=== PATIENT | male | born 1975 | race Caucasian/White ===

== ENCOUNTER 2018-02-07 23:11 | Emergency (ER) | payer SELFPAY ==
[~2018-02-07] VITALS: Ht 165.1 cm; Wt 77.1 kg
[~2018-02-07 23:11] MED LIST: CPR500T PO; NAPR-243 PO; pain med
[2018-02-07] MEDS ORDERED: LACTATED RINGERS 1,000 ML IV ONE (23:44)
[2018-02-07] MEDS ORDERED: KETOROLAC 30 MG/ML VIAL IVP STA (23:44)
[2018-02-07 23:50] LABS: BILIRUBIN,URINE NEGATIVE (NEGATIVE); CLARITY,URINE SLIGHTLY CLOUDY; COLOR,URINE YELLOW; GLUCOSE, URINE (UA) NEGATIVE (NEGATIVE); KETONES,URINE NEGATIVE (NEGATIVE); LEUKOCYTE ESTERASE ,URINE 1+ (NEGATIVE); NITRITE,URINE NEGATIVE (NEGATIVE); PH,URINE 6.5 (5-9); PROTEIN,URINE 2+ (NEGATIVE); UROBILINOGEN,URINE NORMAL (NORMAL)
[2018-02-08 00:02] LABS: BACTERIA,URINE TRACE /HPF; RBC,URINE >100 /HPF; SQUAMOUS EPITHELIAL CELL,UR RARE /HPF; WBC,URINE 0-2 /HPF
[2018-02-08 00:15] LABS: BASOPHILS % (AUTO) 0 % (0-10); EOSINOPHILS # (AUTO) 0.1 10^3/uL (0.0-0.3); EOSINOPHILS % (AUTO) 1 % (0-10); HEMATOCRIT 41 % (40-54); HEMOGLOBIN 13.9 G/DL (13.3-17.7); LYMPHOCYTES # (AUTO) 3.2 X 10^3 (1.0-4.0); LYMPHOCYTES % (AUTO) 25 % (12-44); MEAN CORPUSCULAR HEMOGLOBIN 30 PG (25-34); MEAN CORPUSCULAR HGB CONC 34 G/DL (32-36); MEAN CORPUSCULAR VOLUME 88 FL (80-99); MEAN PLATELET VOLUME 9.3 FL (7.4-10.4); MONOCYTES # (AUTO) 0.6 X 10^3 (0.0-1.0); MONOCYTES % (AUTO) 5 % (0-12); NEUTROPHILS # (AUTO) 8.6 X 10^3 (1.8-7.8); NEUTROPHILS % (AUTO) 68 % (42-75); PLATELET COUNT 418 10^3/uL (130-400); RED BLOOD COUNT 4.63 10^6/uL (4.35-5.85); RED CELL DISTRIBUTION WIDTH 12.7 % (10.0-14.5); WHITE BLOOD COUNT 12.5 10^3/uL (4.3-11.0)
[2018-02-08 00:37] LABS: ALBUMIN 4.3 GM/DL (3.2-4.5); BILIRUBIN,TOTAL 0.2 MG/DL (0.1-1.0); CALCIUM 8.7 MG/DL (8.5-10.1); CREATININE SERUM 1.83 MG/DL (0.60-1.30); POTASSIUM 3.3 MMOL/L (3.6-5.0); TOTAL PROTEIN 7.4 GM/DL (6.4-8.2)
[2018-02-08] MEDS ORDERED: RX-ONDANSETRON 4 MG ODT (ZOFRAN) PPK #4 PO STA (00:40)
[2018-02-08] MEDS ORDERED: RX-NITROFURANTOIN 100 MG (MACROBID) CAP PPK#2 PO STA (00:40)
[2018-02-08] MEDS ORDERED: RX-HYDROCODONE/APAP 5/325 MG #4 TAB PK PO PRN (00:45)
[2018-02-08] MEDS ORDERED: ONDA4TAB8 PO (00:45)
[2018-02-08] MEDS ORDERED: HYDR-87 PO (00:45)
[2018-02-08] MEDS ORDERED: TAMS0.4C98 PO (00:45)
[2018-02-08] MEDS ORDERED: ALFUZOSIN HCL 10 MG TAB (UROXATRAL) PO SCH (00:45)
[2018-02-08] MEDS ORDERED: NITR-65 PO (00:45)
--- NOTE | 2018-02-08 00:45 | ED Abdominal Pain ---
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 PCP: NONE Allergies and Home Medications Allergies Coded Allergies: No Known Drug Allergies (Unverified , 05/26/12) Home Medications Ciprofloxacin 500 Mg Tablet, 1 TAB PO BID FOR INFECTION Prescribed by: SOL MARINO on 03/28/122224 Hydrocodone/Ibuprofen 1 Each Tablet, 1-2 EACH PO Q4H Prescribed by: SOL MARINO on 02/08/1844 Naproxen 500 Mg Tablet, 1 EACH PO TID PRN FOR PAIN Prescribed by: SOL MARINO on 03/28/122224 Nitrofurantoin Monohyd/M-Cryst 100 Mg Capsule, 100 MG PO BID Prescribed by: SOL MARINO on 02/08/1844 Ondansetron 4 Mg Tab.rapdis, 4 MG PO Q4H Prescribed by: SOL MARINO on 02/08/1844 Tamsulosin HCl 0.4 Mg Cap, 0.4 MG PO DAILY Prescribed by: SOL MARINO on 02/08/1844 Patient Home Medication List Home Medication List Reviewed: Yes Review of Systems Constitutional: see HPI, diaphoresis Respiratory: No Symptoms Reported Cardiovascular: No Symptoms Reported Gastrointestinal: See HPI, Abdominal Pain, Nausea, Vomiting Genitourinary: See HPI, Flank Pain Musculoskeletal: see HPI, back pain Skin: no symptoms reported Psychiatric/Neurological: No Symptoms Reported Endocrine: No Symptoms Reported Hematologic/Lymphatic: No Symptoms Reported Past Ajjmrto-Xlixkw-Cimues Hx Patient Social History Alcohol Use: Occasionally Uses Recreational Drug Use: No Smoking Status: Never a Smoker Recent Foreign Travel: No Contact w/Someone Who Travel: No Recent Infectious Disease Expo: No Recent Hopitalizations: No Past Medical History Surgeries: No Respiratory: No Cardiac: No Neurological: No Genitourinary: No (ATROPHIC LEFT KIDNEY NOTED ON CT SCAN 02/07/18. KIDNEY STONE DX ON 02/07/18) Gastrointestinal: No Musculoskeletal: No Endocrine: No HEENT: No Cancer: No Psychosocial: No Integumentary: No Blood Disorders: No Physical Exam Vital Signs Vital Signs - First Documented 02/07/18 23:22 Temp 97.3 Pulse 60 Resp 18 B/P (MAP) 161/111 (128) Pulse Ox 98 Capillary Refill : Less Than 3 Seconds Height/Weight/BMI Height: 5'5.00" Weight: 170lbs. oz. 77.130894ve; BMI Method:Stated General Appearance: WD/WN, mild distress (DUE TO PAIN ), other (FLAILING ALL OVER BED. 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, no motor/sensory deficits, alert, oriented x 3 Skin: normal color, warm/dry; No rash Progress/Results/Core Measures Results/Orders Lab Results Laboratory Tests Test 02/07/18 00:09 02/07/18 23:20 Range/Units White Blood Count 12.5 H 4.3-11.0 10^3/uL Red Blood Count 4.63 4.35-5.85 10^6/uL Hemoglobin 13.9 13.3-17.7 G/DL Hematocrit 41 40-54 % Mean Corpuscular Volume 88 80-99 FL Mean Corpuscular Hemoglobin 30 25-34 PG Mean Corpuscular Hemoglobin Concent 34 32-36 G/DL Red Cell Distribution Width 12.7 10.0-14.5 % Platelet Count 418 H 130-400 10^3/uL Mean Platelet Volume 9.3 7.4-10.4 FL Neutrophils (%) (Auto) 68 42-75 % Lymphocytes (%) (Auto) 25 12-44 % Monocytes (%) (Auto) 5 0-12 % Eosinophils (%) (Auto) 1 0-10 % Basophils (%) (Auto) 0 0-10 % Neutrophils # (Auto) 8.6 H 1.8-7.8 X 10^3 Lymphocytes # (Auto) 3.2 1.0-4.0 X 10^3 Monocytes # (Auto) 0.6 0.0-1.0 X 10^3 Eosinophils # (Auto) 0.1 0.0-0.3 10^3/uL Basophils # (Auto) 0.0 0.0-0.1 10^3/uL Sodium Level 137 135-145 MMOL/L Potassium Level 3.3 L 3.6-5.0 MMOL/L Chloride Level 103 98-107 MMOL/L Carbon Dioxide Level 23 21-32 MMOL/L Anion Gap 11 5-14 MMOL/L Blood Urea Nitrogen 23 H 7-18 MG/DL Creatinine 1.83 H 0.60-1.30 MG/DL Estimat Glomerular Filtration Rate 41 BUN/Creatinine Ratio 13 Glucose Level 178 H 70-105 MG/DL Calcium Level 8.7 8.5-10.1 MG/DL Total Bilirubin 0.2 0.1-1.0 MG/DL Aspartate Amino Transf (AST/SGOT) 32 5-34 U/L Alanine Aminotransferase (ALT/SGPT) 35 0-55 U/L Alkaline Phosphatase 108 40-136 U/L Total Protein 7.4 6.4-8.2 GM/DL Albumin 4.3 3.2-4.5 GM/DL Urine Color YELLOW Urine Clarity SLIGHTLY CLOUDY Urine pH 6.5 5-9 Urine Specific [place] 1.010 L 1.016-1.022 Urine Protein 2+ H NEGATIVE Urine Glucose (UA) NEGATIVE NEGATIVE Urine Ketones NEGATIVE NEGATIVE Urine Nitrite NEGATIVE NEGATIVE Urine Bilirubin NEGATIVE NEGATIVE Urine Urobilinogen NORMAL NORMAL MG/DL Urine Leukocyte Esterase 1+ H NEGATIVE Urine RBC (Auto) 5+ H NEGATIVE Urine RBC >100 H /HPF Urine WBC 0-2 /HPF Urine Squamous Epithelial Cells RARE /HPF Urine Crystals NONE /LPF Urine Bacteria TRACE /HPF Urine Casts NONE /LPF Urine Mucus NEGATIVE /LPF Urine Culture Indicated YES My Orders Orders - SOL MARINO DO Ua Culture If Indicated (02/07/18 23:39) Ct Abd/Pelvis Wo(Kidney Stone) (02/07/18 23:44) Cbc With Automated Diff (02/07/18 23:44) Comprehensive Metabolic Panel (02/07/18 23:44) Saline Lock/Iv-Start (02/07/18 23:44) Lactated Ringers (Lr 1000 Ml Iv Solution (02/07/18 23:44) Ketorolac Injection (Toradol Injection) (02/07/18 23:44) Acute Abd Series (02/08/18 00:01) Urine Culture (02/07/18 23:20) Alfuzosin (Not Stocked) (Uroxatral (Not (02/08/18 00:45) Rx-Hydrocodone/Apap 5-325 Mg (Rx-Vicodin (02/08/18 00:45) Rx-Nitrofurantoin [place] (Rx-Macrobid) (02/08/18 00:40) Rx-Ondansetron Po (Rx-Zofran Po) (02/08/18 00:40) Medications Given in ED Current Medications Medications Dose Ordered Sig/Kareen Route Start Time Stop Time Status Last Admin Dose Admin Acetaminophen/ Hydrocodone Bitart 1 ea Q4H PRN PO 02/08/18 00:45 02/08/18 01:03 DC 02/08/18 01:01 1 EA Lactated Ringer's 1,000 ml @ 0 mls/hr Q0M ONCE IV 02/07/18 23:44 02/07/18 23:47 DC 02/08/18 00:10 0 MLS/HR Vital Signs/I&O 02/07/18 02/08/18 23:22 01:03 Temp 97.3 97.3 Pulse 60 60 Resp 18 18 B/P (MAP) 161/111 (128) 148/84 (128) Pulse Ox 98 98 Blood Pressure Mean: 128 Progress Progress Note : Progress Note PAIN AND NAUSEA COMPLETELY GONE AT DISMISSAL Diagnostic Imaging Comments ABDOMEN XRAYS--MODERATE AMOUNT OF GAS AND STOOL. PENDING RADIOLOGIST REVIEW CT ABDOMEN/ PELVIS--3.6 MM STONE ON RIGHT--APPEARS TO HAVE GONE THROUGH UVJ AND INTO BLADDER. MILD RIGHT HYDRONEPHROSIS. BILATERAL INTRARENAL STONES; ATROPHIC LEFT KIDNEY--PER [facility] VIA FAX @ [phone] Reviewed: Reviewed by Me Departure Impression Primary Impression: Right distal ureteral calculus Additional Impression: Atrophy of left kidney Disposition: HOME, SELF-CARE Condition: Improved Departure-Patient Inst. Referrals: [facility] (PCP) Primary Care Physician KODY WERNER MD Patient Instructions: Kidney Stones (DC) Add. Discharge Instructions: LOTS OF CLEAR LIQUIDS STRAIN ALL URINE--RETURN ANY STONES TO DR. WERNER'S OFFICE FOLLOW UP WITH DR. WERNER NEXT WEEK FOR FURTHER CARE All discharge instructions reviewed with patient and/or family. Voiced understanding. Scripts Hydrocodone/Ibuprofen (Hydrocodone-Ibuprofen 7.5-200) 1 Each Tablet 1-2 EACH PO Q4H for Pain, #20 TAB Prov: SOL MARINO DO 02/08/18 Ondansetron (Zofran Odt) 4 Mg Tab.rapdis 4 MG PO Q4H for Nausea/Vomiting, #10 TAB Prov: SOL MARINO DO 02/08/18 Tamsulosin HCl (Flomax) 0.4 Mg Cap 0.4 MG PO DAILY, #10 CAP Prov: SOL MARINO DO 02/08/18 Nitrofurantoin Monohyd/M-Cryst (Macrobid 100 mg Capsule) 100 Mg Capsule 100 MG PO BID, #20 CAP Prov: SOL MARINO DO 02/08/18 SOL MARINO DO Feb 08, 2018 00:45
[2018-02-08 01:03] VITALS: BP 148/84
--- NOTE | 2018-02-08 08:05 | Diagnostic Imaging Report ---
EXAMINATION: Abdominal radiographs, acute series. DATE: February 08, 2018. CLINICAL INDICATION: 42-year-old male, right flank pain. COMPARISON: CT abdomen and pelvis February 07, 2018. COMMENTS: Heart size and mediastinal contours are unremarkable. There is no identified pneumothorax. There is no large pleural effusion. There is no identified focal airspace consolidation. There is no identified free intraperitoneal air. There are gas-filled segments of large and small bowel. The gas-filled segments of small bowel are dilated in the mid abdomen up to approximately 3.8 cm in diameter and do appear mildly disproportional to colonic caliber. There is no identified portal venous gas or pneumatosis. There is no abnormal radiodensity overlying the kidneys or expected positions of the ureters. Left nonobstructing renal stone and right nonobstructing renal stones are better seen on recent comparison CT abdomen and pelvis. IMPRESSION: 1. Abnormal bowel gas pattern with mildly distended gas-filled segments of small bowel in the midabdomen. Small bowel obstruction and ileus are included in the differential diagnosis. This is a change since the comparison CT abdomen and pelvis of February 07, 2018. 2. Nonobstructing renal stones bilaterally seen on recent CT are not well-visualized radiographically. Report given to ER Doctor at 8:03 a.m. 02/08/2018/cb Dictated by: Dictated on workstation # [id number]
--- NOTE | 2018-02-08 08:12 | Diagnostic Imaging Report ---
PROCEDURE: CT urinary tract, rule out kidney stone. TECHNIQUE: Multiple contiguous axial images were obtained through the abdomen and pelvis without the use of intravenous contrast. INDICATION: Flank pain. COMPARISON: 12/21/2012. FINDINGS: The heart size is normal. The lung bases are clear. The liver is normal in size without focal lesions. Gallbladder is unremarkable. There is no biliary ductal dilatation. The spleen is normal. The pancreas and adrenal glands are unremarkable. There is marked atrophy of the left kidney. There are nonobstructing calculi bilaterally. There is mild right hydronephrosis and hydroureter secondary to a 4 mm stone seen at the right UVJ. The aorta is nonaneurysmal. Bowel gas pattern is nonspecific. There is no free air. There is no ascites. There is no focal inflammatory change. No pelvic mass, adenopathy or free fluid. The osseous structures are unremarkable. IMPRESSION: Mild right hydronephrosis and hydroureter secondary to a 4 mm stone seen at the right UVJ. Nonobstructing bilateral renal calculi as well as atrophy of the left kidney No other acute abnormality of the abdomen or pelvis. Dictated by: Dictated on workstation # [id number]
== END 2018-02-08 01:03 | disposition home or self-care (01) ==
LOC: EDUNIT# 23:11 → ER 23:14
DX: N20.1 Calculus of ureter (principal); N26.1 Atrophy of kidney (terminal)
CPT/HCPCS: 36415; 74022; 74176; 80053; 81000; 85025; 87088; 96374

== ENCOUNTER → 2018-02-12 | Outpatient (CLI) | payer SELFPAY ==
[~2018-02-12] MED LIST changes: +HYDR-87 PO; +NITR-65 PO; +ONDA4TAB8 PO; +TAMS0.4C98 PO
--- NOTE | 2018-02-12 14:01 | Diagnostic Imaging Report ---
Supine KUB at 1:12 p.m. INDICATION: Nephrolithiasis. FINDINGS: The CT abdomen/pelvis exam of 02/07/18 noted partial obstruction of the right collecting system due to a 4 mm calculus at the ureterovesical junction on the right. On this exam, that calcification cannot be identified. There are a few minute calcific densities overlying the right kidney itself. These were also noted on the previous CT exam. The calculus within the left kidney seen on the prior study, however, is not well appreciated. There is no acute abnormality of the abdomen. IMPRESSION: 1. The obstructive calculus at the ureterovesical junction on the right seen previously cannot be identified on this exam. The calculus in question may have passed. Clinical followup is recommended. 2. There are nonobstructive calculi within the right kidney. Dictated by: Dictated on workstation # [id number]
== END ==
LOC: RAD 12:35
PROVIDERS: ATTEND Urology
DX: N20.0 Calculus of kidney (principal)
CPT/HCPCS: 74018